=== PATIENT | male | born 1965 | race Hispanic/Latino ===

== ENCOUNTER 2018-05-02 20:55 | Emergency (ER) | payer BC ==
[2018-05-02 21:40] LABS: SQUAMOUS EPITHIAL < 1 /hpf (0-5); URINE BACTERIA RARE (<OCC); URINE BILIRUBIN NEGATIVE (NEGATIVE); URINE BLOOD NEGATIVE (NEGATIVE); URINE CLARITY Clear (Clear); URINE COLOR Yellow (YELLOW); URINE GLUCOSE (UA) NORMAL (Normal); URINE LEUKOCYTE ESTERASE NEG Leu/uL (Negative); URINE PROTEIN 1+ mg/dL (NEGATIVE); URINE UROBILINOGEN NORMAL mg/dL (0.2-1.0)
[2018-05-02 21:49] LABS: BARBITURATES, UR NEGATIVE (NEGATIVE); BENZODIAZEPINES, UR NEGATIVE (NEGATIVE); OPIATES, UR NEGATIVE (NEGATIVE); PHENCYCLIDINE, UR NEGATIVE (NEGATIVE)
--- NOTE | 2018-05-02 22:13 | C.PDOC ---
History Of Present Illness Patient presents to the ER with a complaint of hematuria and mild dysuria on 04/30/18. He is a noninsulin dependent diabetic. Denies fever, chills, nausea, vomiting, or trauma. Time Seen by Provider: 05/02/18 22:12 Chief Complaint (Nursing): Male Genitourinary History Per: Patient History/Exam Limitations: no limitations Onset/Duration Of Symptoms: Days Current Symptoms Are (Timing): Still Present Severity: Moderate Pain Scale Rating Of: 4 Quality Of Discomfort: Unable To Describe Associated Symptoms: Urinary Symptoms (Dysuria, Hematuria). denies: Fever, Chills, Nausea, Vomiting Alleviating Factors: None Recent travel outside of the [place]: No Past Medical History Reviewed: Historical Data, Nursing Documentation, Vital Signs Vital Signs: Last Vital Signs Temp 98.9 F 05/02/18 21:03 Pulse 90 05/02/18 21:03 Resp 14 05/02/18 21:03 BP 190/104 H 05/02/18 21:17 Pulse Ox 97 05/02/18 21:03 Family History: States: No Known Family Hx - Social History Hx Alcohol Use: No Hx Substance Use: No - Immunization History Hx Tetanus Toxoid Vaccination: No Hx Influenza Vaccination: No Hx Pneumococcal Vaccination: No Review Of Systems Constitutional: Negative for: Fever, Chills Cardiovascular: Negative for: Chest Pain, Palpitations Respiratory: Negative for: Cough, Shortness of Breath Gastrointestinal: Negative for: Nausea, Vomiting Genitourinary: Positive for: Dysuria, Hematuria Neurological: Negative for: Weakness, Numbness Physical Exam - Physical Exam Appears: Non-toxic Skin: Warm, Dry Head: Normacephalic Oral Mucosa: Moist Chest: Symmetrical, No Tenderness Cardiovascular: Rhythm Regular Respiratory: No Rales, No Rhonchi, No Wheezing Gastrointestinal/Abdominal: Soft, No Tenderness Male Genital: Other (Large right inguinal hernia) Neurological/Psych: Oriented x3 ED Course And Treatment - Laboratory Results Result Diagrams: 05/02/18 22:20 05/02/18 22:20 O2 Sat by Pulse Oximetry: 97 (room air) Pulse Ox Interpretation: Normal Progress Note: CT abd/pel, blood work, and urinalysis ordered. IV fluids administered. Reevaluation Time: 00:26 Reassessment Condition: Improved Disposition Counseled Patient/Family Regarding: Studies Performed, Diagnosis, Need For Followup - Disposition Referrals: Maurizio Kraft MD [Medical Doctor] - Disposition: HOME/ ROUTINE Disposition Time: 22:13 Condition: FAIR Additional Instructions: Please return if symptoms recur Prescriptions: Ciprofloxacin HCl [Cipro] 500 mg PO BID #20 tablet Instructions: Urinary Tract Infection, Adult (DC), Acute Cystitis (DC), Groin Hernia (DC) Forms: [employer] ([place]) - Clinical Impression Clinical Impression: Cystitis, Inguinal hernia - Scribe Statement The provider has reviewed the documentation as recorded by the Scribelio Berman All medical record entries made by the Danialibelio were at my direction and personally dictated by me. I have reviewed the chart and agree that the record accurately reflects my personal performance of the history, physical exam, medical decision making, and the department course for this patient. I have also personally directed, reviewed, and agree with the discharge instructions and disposition.
[2018-05-02] MEDS ORDERED: Sodium Chloride 0.9% 1,000 ML IV ONE (22:15)
[2018-05-02] MEDS ORDERED: Sodium Chloride 0.9% 1,000 ML ONE (22:24)
[2018-05-02 22:26] LABS: BASO % 0.9 % (0.0-2.0); EOS % 0.2 % (0.0-4.0); HEMOGLOBIN 16.6 g/dL (12.0-18.0); LYMPH # 0.8 K/uL (1.0-4.3); LYMPH % 15.4 % (20.0-40.0); MEAN CORPUSCULAR HEMOGLOBIN 33.3 pg (27.0-31.0); MEAN CORPUSCULAR HGB CONC 35.1 g/dL (33.0-37.0); MEAN PLATELET VOLUME 7.4 fL (7.2-11.7); MONO # 0.5 K/uL (0.0-0.8); MONO % 9.8 % (0.0-10.0); NEUT # 3.9 K/uL (1.8-7.0); NEUT % 73.7 % (50.0-75.0); RBC 4.97 Mil/uL (4.40-5.90); WHITE BLOOD COUNT 5.2 K/uL (4.8-10.8)
[2018-05-02] MEDS ORDERED: Iohexol 350mg/ml 100 ML ONE (22:39)
[2018-05-02 22:41] LABS: BLOOD UREA NITROGEN 10 mg/dL (9-20); CALCIUM 9.4 mg/dl (8.6-10.4); GFR NON-AFRICAN AMERICAN > 60
[2018-05-03 00:08] VITALS: BP 135/76; PULSE 100; RESP 18; TEMP 98.1
[2018-05-03 00:29] VITALS: O2SAT 97
--- NOTE | 2018-05-03 09:51 | CT ---
Date of service: 05/02/2018 PROCEDURE: CT Abdomen and Pelvis with contrast HISTORY: hematuria, r iinguinal hernia COMPARISON: None. TECHNIQUE: Contrast dose: No IV contrast administered. Radiation dose: Total exam DLP = 458.1 mGy-cm. This CT exam was performed using one or more of the following dose reduction techniques: Automated exposure control, adjustment of the mA and/or kV according to patient size, and/or use of iterative reconstruction technique. FINDINGS: LOWER THORAX: Unremarkable. LIVER: Diffuse fatty infiltration. No gross lesion or ductal dilatation. GALLBLADDER AND BILE DUCTS: Unremarkable. PANCREAS: Unremarkable. No gross lesion or ductal dilatation. SPLEEN: Unremarkable. ADRENALS: Possible incidental sub cm 4 to 5 mm left adrenal adenoma. KIDNEYS AND URETERS: Unremarkable. No hydronephrosis. No solid mass. VASCULATURE: Unremarkable. No aortic aneurysm. No aortic atherosclerotic calcification or mural plaque present. BOWEL: Stool retention prominent stool in rectum.. No obstruction. No gross mural thickening. APPENDIX: Nonvisualized. No pericecal edema seen. PERITONEUM: Unremarkable. No free fluid. No free air. LYMPH NODES: Unremarkable. No enlarged lymph nodes. BLADDER: Mild bladder wall thickening suggested. REPRODUCTIVE: Prostate mildly enlarged measuring 5.2 x 3.6 by 4.5 cm. Few prostatic calcifications. BONES: No acute fracture seen. In the left iliac bone a 7 to 8 mm geographic lucent the lesion with trace sclerotic borders is noted. No pathological fracture seen here. The etiology and clinical significance of this is unknown. Elsewhere are scattered sclerotic benign-appearing bone islands for example 1 in the iliac wing axis series 2, image 76 an over each femoral. OTHER FINDINGS: IMPRESSION: Large fat and vessel containing right groin hernia extends into the right scrotal sac. No bowel contents within the herniated sac seen. The neck of the hernia on axial series 2, image 83 is 1.8 cm. The anterior posterior dimension of it at this right groin level is 2.6 cm. The cephalo caudal extent of this fat containing hernia is 9.2 cm with a transverse dimension in the coronal plane of 3.7 cm.. Large fat containing right-sided hernia extending into the scrotal sac likely displacing the testicle inferiorly. The testicle itself is suboptimally visualized. For this a scrotal ultrasound be advised. A reactive hydrocele cannot be excluded. Hepatic steatosis. Nonspecific geographic benign-appearing radiolucent bony lesion left iliac bone. No comparison studies to assess stability. No pathological fractures seen. This was not initially mention on the preliminary [place] rad report. Benign etiology is favored. Prostatic hypertrophy with prostatic calcifications. Mild bladder wall thickening-compatible with minimal cystitis and/or minimal reactive hypertrophy
== END 2018-05-03 00:43 | disposition home or self-care (01) ==
LOC: C.ER 20:55
DX: N30.91 Cystitis, unspecified with hematuria (principal); K40.90 Unilateral inguinal hernia, without obstruction or gangrene, not specified as recurrent; E11.9 Type 2 diabetes mellitus without complications
CPT/HCPCS: 74177; 80048; 81001; 85025; 99285; G0480; J7030; Q9967

== ENCOUNTER 2018-08-28 18:39 | Emergency (ER) | payer BC | END 2018-08-28 20:56 | disposition home or self-care (01) | LOC: C.ER 18:39 ==